=== PATIENT | female | born 1965 | race Two or more races ===

== ENCOUNTER 2022-06-02 10:40 | Emergency (ER) | payer MEDICAID, OTHER ==
[~2022-06-02] VITALS: Ht 170.2 cm; Wt 87.2 kg
[2022-06-02 10:45] VITALS: BP 0/0
[2022-06-02 11:51] LABS: INR 1.63 (0.9-1.15); Partial Thromboplastin Time 41.5 sec (24.6-33.4)
[2022-06-02 11:55] LABS: Hematocrit 55.1 % (36.0-46.0); Mean Corpuscular Hemoglobin 30.5 pg (28.0-32.0); Mean Corpuscular Hgb Conc. 30.9 g/dL (32.0-36.0); Mean Corpuscular Volume 98.7 fL (80.0-100.0); Red Blood Cells 5.58 10^6/uL (4.0-5.20); Red Cell Distribution Width 14.8 % (11.8-14.3); White Blood Cell 9.4 10^3/uL (4.4-10.8)
[2022-06-02 11:59] LABS: Basophils % (manual) 0 (0.0-2.0); Blast Cells 0; Metamyelocytes % 0; Myelocytes % 0; Promyelocytes % 0; Reactive Lymphocytes 0
[2022-06-02 12:14] LABS: Alanine Aminotransferase 63 U/L (13-56); Albumin 2.6 g/dL (3.4-5.0); Anion Gap 17 (5-15); Aspartate Aminotransferase 117 U/L (15-37); BUN/Creatinine Ratio 16.7; Blood Urea Nitrogen 21 mg/dL (7-18); Calcium 7.4 mg/dL (8.5-10.1); Carbon Dioxide 19 mmol/L (21-32); Chloride 109 mmol/L (98-107); GFR African American 56 mL/min; GFR Non-African American 47 mL/min; Glucose 182 mg/dL (74-106); Magnesium 2.5 mg/dL (1.6-2.6); Potassium 5.1 mmol/L (3.5-5.1); Sodium 145 mmol/L (136-145)
[2022-06-02 12:17] LABS: Alkaline Phosphatase 236 U/L (45-117); Bilirubin, Total 0.8 mg/dL (0.2-1.0); Total Protein 5.8 g/dL (6.4-8.2)
[2022-06-02 12:50] LABS: Band Neutrophils % (manual) 3; Eosinophils % (manual) 2 (0-7); Lymphocytes % (manual) 61 (10.0-50.0); Monocytes % (manual) 4 (0-12)
== END 2022-06-02 12:33 ==
LOC: EDBD 10:40 → ER 10:40
DX: I46.9 Cardiac arrest, cause unspecified (principal); R41.82 Altered mental status, unspecified; R06.89 Other abnormalities of breathing; E11.9 Type 2 diabetes mellitus without complications; E78.5 Hyperlipidemia, unspecified; Z86.73 Personal history of transient ischemic attack (TIA), and cerebral infarction without residual deficits; Z79.899 Other long term (current) drug therapy; Z79.01 Long term (current) use of anticoagulants
CPT/HCPCS: 31500; 36415; 36600; 80053; 82805; 83735; 84484; 85007; 85027; 85610; 85730; 92950; 93005